=== PATIENT | female | born 1970 | race Two or more races ===

== ENCOUNTER 2020-11-10 08:57 | Outpatient (CLI) | payer OTHER ==
[~2020-11-10 08:57] MED LIST: NAPROXEN SODIU550 M1 PO
== END 2020-11-10 09:09 | disposition home or self-care (01) ==
LOC: SONOGRAMA 08:57 → MAMO-SONO 09:00 → SONOGRAMA 09:09
PROVIDERS: ATTEND Specialist
DX: R10.31 Right lower quadrant pain (principal); R10.32 Left lower quadrant pain

== ENCOUNTER 2020-12-12 12:47 | Outpatient (CLI) | payer OTHER | END 2020-12-12 12:50 | disposition home or self-care (01) | LOC: NUCLEAR 12:47 | PROVIDERS: ATTEND Internal Medicine Gastroenterology | DX: M81.0 Age-related osteoporosis without current pathological fracture (principal) ==